=== PATIENT | female | born 1985 | race Caucasian/White ===

== ENCOUNTER 2020-01-27 07:00 | Emergency (ER) | payer OTHER ==
[2020-01-27 07:11] VITALS: BP 115/66; PULSE 61; TEMP 98.1; BMI 29.7
--- NOTE | 2020-01-27 08:00 | PDOC ---
History of Present Illness - General Chief Complaint: Vaginal Bleeding Stated Complaint: VAGINAL BLEED/7WKS Time Seen by Provider: 01/27/20 07:29 - History of Present Illness Initial Comments: 01/27/20 07:56 34yo at 7 weeks by LMP (12/08/19) presents with vaginal bleeding since this morning and cramping lower abdominal pain for one week. States she saw blood on the toilet paper when wiping after urination. No blood in the toilet. No continued bleeding.No trauma. No abnormal discharge. Remote history of chlamyd ia. Had one spontaneous at 8 weeks and one intentional at 6 weeks. Lives with , two kids, and brother in law. Feels safe at home. Reports polyuria, but no other or GI symptoms. Reports n/v in past pregnancies, but not this one. PMH/PSH/meds/allergies: none ETOH/tobacco/drugs: denies ROS GENERAL/CONSTITUTIONAL: No fever or chills. No weakness. HEAD, EYES, EARS, NOSE AND THROAT: No change in vision. No ear pain or discharge. No sore throat. CARDIOVASCULAR: No chest pain or shortness of breath RESPIRATORY: No cough, wheezing, or hemoptysis. GASTROINTESTINAL: No nausea, vomiting, diarrhea or constipation. GENITOURINARY: polyuria, no hematuria MUSCULOSKELETAL: No joint or muscle swelling or pain. No neck or back pain. SKIN: No rash NEUROLOGIC: No headache, vertigo, loss of consciousness, or change in strength/sensation. ENDOCRINE: No increased thirst. No abnormal weight change HEMATOLOGIC/LYMPHATIC: No anemia, easy bleeding, or history of blood clots. ALLERGIC/IMMUNOLOGIC: No hives or skin allergy. PE GENERAL: Awake, alert, and fully oriented, in no acute distress HEAD: No signs of trauma, normocephalic, atraumatic EYES: PERRLA, EOMI, sclera anicteric, conjunctiva clear ENT: Auricles normal inspection, hearing grossly normal, nares patent, oropharynx clear without exudates. Moist mucosa NECK: Normal ROM, supple, no lymphadenopathy, JVD, or masses LUNGS: No distress, speaks full sentences, clear to auscultation bilaterally HEART: Regular rate and rhythm, normal S1 and S2, no murmurs, rubs or gallops, peripheral pulses normal and equal bilaterally. ABDOMEN: Soft. suprapubic, LLQ, and periumbilical tenderness. No guarding, no rebound. No masses EXTREMITIES : Normal inspection, Normal range of motion, no edema. No clubbing or cyanosis. NEUROLOGICAL: Normal speech, normal gait, no focal sensorimotor deficits SKIN: Warm, Dry, normal turgor, no rashes or lesions noted Pelvic Exam: some blood in the vault, no pooling, no lesions or discharge, cervix not visualized, closed os on palpation. Vital Signs Temp Pulse Resp BP Pulse Ox 98.1 F 61 18 115/66 99 01/27/20 07:08 01/27/20 07:08 01/27/20 07:08 01/27/20 07:08 01/27/20 07:08 MDM: [age]yo at 7 weeks by LMP (12/08/19) presents with vaginal bleeding since t his morning and cramping lower abdominal pain for one week. Some blood on pelvic exam, with closed os. DDx includes , ectopic , UTI. -CBC, CMP, coags, T&S, UA/UC, beta hcg -transvaginal US 01/27/20 10:00 Labs: no emergent pathology. Beta hcg 269. TVUS: IUP vs. ectopic Patient's OBGYN Dr. Box at [facility], and was able to consult Dr. Streeter who is covering. He states the TVUS shows an IUP and there is likely no ectopic. He recommends repeat beta-hcg and TVUS in one week DC home with ectopic precautions and OBGYN f/u Past History - Medical History Allergies/Adverse Reactions: Allergies Allergy/AdvReac Type Severity Reaction Status Date / Time No Known Allergies Allergy Verified 01/27/20 07:11 COPD: No - Reproductive History Is Patient Now?: Yes Cervical CA: No Dysfunctional Uterine Bleeding: No Ectopic : No Endometrial CA: No Polycystic Ovaries: No Therapeutic (s) & number: No Tubal Ligation: No - Psycho-Social/Smoking History Smoking History: Never smoked - Substance Abuse Hx (Audit-C & DAST Scrn) How often the patient has a drink containing alcohol: Never Score: In Men: 4 or > Positive; In Women: 3 or > Positive: 0 Screen Result (Pos requires Nsg. Audit-10AR): Negative *Physical Exam - Vital Signs Last Vital Signs Temp Pulse Resp BP Pulse Ox 98.1 F 61 18 115/66 99 01/27/20 07:08 01/27/20 07:08 01/27/20 07:08 01/27/20 07:08 01/27/20 07:08 ED Treatment Course - LABORATORY CBC & Chemistry Diagram: 01/27/20 07:52 01/27/20 07:52 Discharge - Discharge Information Problems reviewed: Yes Clinical Impression/Diagnosis: Vaginal bleeding affecting early Condition: Fair Disposition: HOME - Admission No - Follow up/Referral - Patient Discharge Instructions Patient Printed Discharge Instructions: DI for Vaginal Bleeding During Additional Instructions: La vieron en la abhinav de emergencias por sangrado vaginal y dolor abdominal. Hicimos un examen fsico, laboratorios, ecografa y consultamos a un ginecoobstetra. Segn estos resultados, es probable que tenga un embarazo uterino. No est ta si el embarazo fue abortado o no. Tambin existe la posibilidad de que tenga un embarazo ectpico, shabana esto es menos probable. Debe ir a moreno ashvin con el obstetra el jueves para repetir las pruebas de laboratorio y la ecografa. Regrese a la abhinav de emergencias si experimenta sangrado vaginal intenso, dolor, aturdimiento, mareos, aturdimiento, prdida del conocimiento o cualquier otro problema. You were seen in the ER for vaginal bleeding and abdominal pain. We did a physical exam, labs, ultrasound, and consulted an OBGYN. Based off these r esults, you likely have a uterine . It is unclear whether or not the was aborted or not. There is also a possibility that you have an ectopic , but this is less likely. You need to go to your OBGYN appointment on for repeat lab tests and ultrasound. Please return to the ER if you experience severe vaginal bleeding, pain, lightheadedness, dizziness, lightheadedness, loss of consciousness, or any other problem. Print Language: MALTESE - Post Discharge Activity
[2020-01-27 08:27] LABS: BASO % 0.5 % (0-2.0); EOS % 2.3 % (0-4.5); HEMATOCRIT 36.1 % (32.4-45.2); HEMOGLOBIN 11.9 GM/dL (10.7-15.3); LYMPH % 22.9 % (8-40); MCH 27.6 pg (25.7-33.7); MCHC 33.1 g/dl (32.0-36.0); MEAN CELL VOLUME 83.6 fl (80-96); MONO % 4.6 % (3.8-10.2); NEUT % 69.7 % (42.8-82.8); PLATELET COUNT 275 K/MM3 (134-434); RBC 4.32 M/mm3 (3.60-5.2); RDW 17.1 % (11.6-15.6); WHITE BLOOD COUNT 9.8 K/mm3 (4.0-10.0)
[2020-01-27 08:29] LABS: EPI CELLS 7 /uL (0-25.1); HYALINE CASTS 0 /uL (0-3.1); URINE APPEARANCE CLEAR; URINE BACTERIA 196 /uL (0-1359); URINE BILIRUBIN NEGATIVE (NEGATIVE); URINE COLOR YELLOW; URINE GLUCOSE (UA) NEGATIVE (NEGATIVE); URINE KETONE NEGATIVE (NEGATIVE); URINE LEUK ESTERASE NEGATIVE (NEGATIVE); URINE NITRITE NEGATIVE (NEGATIVE); URINE PROTEIN NEGATIVE (NEGATIVE); URINE RBC 48 /uL (0-23.9); URINE UROBILINOGEN 0.2 mg/dL (0.2-1.0); URINE WBC 8 /uL (0-25.8)
[2020-01-27 08:32] LABS: INR 1.07 (0.83-1.09); PROTHROMBIN TIME (PATIENT) 12.6 SEC (9.7-13.0)
[2020-01-27 08:34] LABS: ACTIVATED PTT 32.3 SECONDS (25.2-36.5)
[2020-01-27 08:55] LABS: ALBUMIN 3.5 g/dl (3.4-5.0); BILIRUBIN,TOTAL 0.6 mg/dL (0.2-1); BLOOD UREA NITROGEN 10.2 mg/dL (7-18); CALCIUM 8.8 mg/dL (8.5-10.1); CREATININE 0.6 mg/dL (0.55-1.3); POTASSIUM 4.2 mmol/L (3.5-5.1); TOT PROT 7.4 g/dl (6.4-8.2)
--- NOTE | 2020-01-27 09:44 | PDOC ---
Attending Attestation - Resident Resident Name: Stalin Mack - ED Attending Attestation I have performed the following: I have examined & evaluated the patient, The case was reviewed & discussed with the resident, I agree w/resident's findings & plan, Exceptions are as noted - HPI HPI: 01/27/20 08:41 34yo at 7 weeks by LMP (12/08/19) presents with vaginal bleeding
--- NOTE | 2020-01-27 09:47 | PDOC ---
Documentation entered by Mary Zazueta SCRIBE, acting as scribe for Haider Espinal MD. Haider Espinal MD: This documentation has been prepared by the aliciaibeMarbin Ana, SCRIBE, under my direction and personally reviewed by me in its entirety. I confirm that the documentation accurately reflects all work, treatment, procedures, and medical decision making performed by me. Attending Attestation - Resident Resident Name: Stalin Mack - ED Attending Attestation I have performed the following: I have examined & evaluated the patient, The case was reviewed & discussed with the resident, I agree w/resident's findings & plan, Exceptions are as noted - HPI HPI: 01/27/20 09:19 Patient is a 34 year old 7 weeks female with a significant past medical history of chlamydia and spontaneous who presents to the ED with vagina bleeding x1 day and cramps x1 week. Patient stated she went to go wipe herself after urinating and saw blood on the toilet paper but there was no blood present in the toilet and no continued bleeding. Patient reports her cramping is in her lower abdomen. Patient endorses: polyuria Patient denies: any recent trauma, nausea, vomiting, abnormal discharge, smoking, alcohol intake, recreational drug use, or any other related symptoms. Allergies: NKDA - Physicial Exam PE: 01/27/20 09:24 Vitals: Triage vital signs reviewed General Appearance: No acute distress, well nourished, well developed Head: Atraumatic Cardiac: Regular rate and rhythm, no murmurs, no rubs, no gallops Lungs: Clear to auscultation bilateral, good air movement bilaterally Abdomen: Soft, nondistended, normal bowel sounds, nontender to palpation Extremities: Full range of motion to all extremities, no cyanosis, clubbing, or edema Skin: Warm and dry, no rashes or lesions, no rash, no petechiae Psych: Normal mood, normal affect - Medical Decision Making 01/27/20 10:53 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 Discharge - Discharge Information Problems reviewed: Yes Clinical Impression/Diagnosis: Vaginal bleeding affecting early Condition: Fair Disposition: HOME - Follow up/Referral - Patient Discharge Instructions Patient Printed Discharge Instructions: DI for Vaginal Bleeding During Additional Instructions: La vieron en la abhinav de emergencias por sangrado vaginal y dolor abdominal. Hicimos un examen fsico, laboratorios, ecografa y consultamos a un ginecoobstetra. Segn estos resultados, es probable que tenga un embarazo uterino. No est ta si el embarazo fue abortado o no. Tambin existe la pos ibilidad de que tenga un embarazo ectpico, shabana esto es menos probable. Debe ir a moreno ashvin con el obstetra el jueves para repetir las pruebas de laboratorio y la ecografa. Regrese a la abhinav de emergencias si experimenta sangrado vaginal intenso, dolor, aturdimiento, mareos, aturdimiento, prdida del conocimiento o cualquier otro problema. You were seen in the ER for vaginal bleeding and abdominal pain. We did a physical exam, labs, ultrasound, and consulted an OBGYN. Based off these results, you likely have a uterine . It is unclear whether or not the was aborted or not. There is also a possibility that you have an ectopic , but this is less likely. You need to go to your OBGYN appointment on for repeat lab tests and ultrasound. Please return to the ER if you experience severe vaginal bleeding, pain, lightheadedness, dizziness, lightheadedness, loss of consciousness, or any other problem. Print Language: ETHIOPIAN - Post Discharge Activity
--- NOTE | 2020-01-27 11:24 | CON.OBG ---
Consult Consult Specialty:: COMPONENTS ENGINEER Reason for Consultation:: Vaginal spotting, Abdominal pain - History of Present Illness Chief Complaint: Vaginal Bleeding, Abdominal cramps History of Present Illness: Dredge Mate #[id number] [place] Citizen 34 Y/O , LMP 12/08/2019, PSHX X2, 1 voluntary termination of (6W) & 1 spontaneous (8W), denies PMHx, presented to the ED today complaining of vaginal light spotting that started this morning, Patient also reports on & off lower light abdominal cramping X1 week. Pelvic US done showed : IUP 4+6 weeks size, no petal branden no FHR, as well as a cystic structure in Right Ovary ? corpus Luteial cyst VS Ectopic Ov evaluation VS: Stable BP 115/66, P 61, Temp 98.1, R 18, PO2 99% on RA PE: AAOX3 in NAD HEENT: NC/AT Chest: CTA, BL Abdomen: Soft, non disbanded, non tender, no Guarding no rebound, no palpable mass. EXT: -C/C/E, -ve Gillian" BL VE: Scant blood in vagina, no active bleeding Cervical os closed NO CMT, No palpable mass WNL external Genitalia. LABS QBHCG 269 WBC 9.8>11.9/36.1<275 Bun 10.2, Lens Silverer 0.6 A/P 34 Y/O , LMP 12/08/2019 IUP 4+6 weeks size, no petal branden no FHR, as well as a cystic structure in Right Ovary ? corpus Luteial cyst VS Ectopic Liklely early Vs Bliated Ovum All options D/W patient and elected to have expectant management for now. F/U & Repeat QBHCG and pelvic US in one week at [facility] [place] Strict and Ectopic precautions given. all questions answered, Patient expressed and verbalized full understanding. - History Source History Provided By: Patient - Past Medical History ...LMP: 12/08/19 ...LMP Comment: 12/08/2019 ...: Yes ...: 5 ...Para: 2 - Past Surgical History Past Surgical History: Yes: - Smoking History Smoking history: Never smoked Home Medications - Allergies Allergies/Adverse Reactions: Allergies Allergy/AdvReac Type Severity Reaction Status Date / Time No Known Allergies Allergy Verified 01/27/20 07:11 Review of Systems - Review of Systems Genitourinary: reports: Vaginal Bleeding Physical Exam-COMPONENTS ENGINEER Vital Signs: Vital Signs Temperature 98.1 F 01/27/20 07:08 Pulse Rate 61 01/27/20 07:08 Respiratory Rate 18 01/27/20 07:08 Blood Pressure 115/66 01/27/20 07:08 O2 Sat by Pulse Oximetry (%) 99 01/27/20 07:08 Constitutional: Yes: Well Nourished Eyes: Yes: WNL HENT: Yes: WNL Neck: Yes: WNL Respiratory: Yes: WNL Gastrointestinal: Yes: WNL Renal/: Yes: , Vaginal Bleeding External Genitalia: Yes: Normal Vaginal Exam: Yes: Bleeding Cervix: Yes: Normal Uterus: Yes: Normal Labs: CBC, BMP 01/27/20 07:52 01/27/20 07:52 Assessment/Plan A/P 34 Y/O , LMP 12/08/2019 IUP 4+6 weeks size, no petal branden no FHR, as well as a cystic structure in Right Ovary ? corpus Luteial cyst VS Ectopic Liklely early Vs Bliated Ovum All options D/W patient and elected to have expectant management for now. F/U & Repeat QBHCG and pelvic US in one week at [facility] [place] Strict and Ectopic precautions given. all questions answered, Patient expressed and verbalized full understanding.
== END 2020-01-27 11:18 | disposition home or self-care (01) ==
LOC: JER 07:00
DX: O26.851 Spotting complicating pregnancy, first trimester (principal)
CPT/HCPCS: 36415; 76817-TC; 80053; 81003; 84702; 85025; 85610; 85730; 86850; 86900; 86901; 87086; 99284-25

== ENCOUNTER 2020-10-24 09:30 | Inpatient (IN) | payer OTHER ==
[2020-10-24] MEDS ORDERED: ELECTROLYTE-148 SOLN 1,000 ML IV SCH ×2 (09:45→10:15)
[2020-10-24] MEDS ORDERED: CITRIC ACID/SODIUM CITRATE 30 ML UNIT-DOSE CUP PO ONE (09:45)
[2020-10-24 10:16] LABS: BASO % 0.7 % (0-2.0); EOS % 1.1 % (0-4.5); HEMATOCRIT 28.6 % (32.4-45.2); HEMOGLOBIN 9.2 GM/dL (10.7-15.3); LYMPH % 21.3 % (8-40); MCH 23.4 pg (25.7-33.7); MCHC 32.1 g/dl (32.0-36.0); MEAN CELL VOLUME 72.9 fl (80-96); MEAN PLT VOLUME 8.1 fl (7.5-11.1); MONO % 4.7 % (3.8-10.2); NEUT % 72.2 % (42.8-82.8); PLATELET COUNT 264 K/MM3 (134-434); RBC 3.91 M/mm3 (3.60-5.2); RDW 17.2 % (11.6-15.6); WHITE BLOOD COUNT 9.2 K/mm3 (4.0-10.0)
[2020-10-24 10:32] LABS: INR 0.96 (0.83-1.09); PROTHROMBIN TIME (PATIENT) 11.8 SEC (9.7-13.0)
[2020-10-24 10:34] VITALS: BMI 35.9
[2020-10-24 10:43] LABS: CALCIUM 8.2 mg/dL (8.5-10.1)
[2020-10-24 10:44] LABS: BLOOD UREA NITROGEN 7.6 mg/dL (7-18)
[2020-10-24 10:48] LABS: CREATININE 0.5 mg/dL (0.55-1.3)
[2020-10-24] MEDS ORDERED: morphine SULFATE/PF 0.5 MG/ML (2cc Syringe - QUVA) ONE (10:54)
[2020-10-24] MEDS ORDERED: LIGASURE IMPACT TP ONE (12:13)
[2020-10-24] MEDS ORDERED: DEXAMETHASONE SOD PHOSPHATE 4 MG/1 ML VIAL ONE (12:27)
[2020-10-24] MEDS ORDERED: GLYCOPYRROLATE 0.2 MG/1 ML VIAL ONE (12:27)
[2020-10-24] MEDS ORDERED: PHENYLEPHRINE HCL 10 MG/1 ML SINGLE DOSE VIAL ONE (12:27)
[2020-10-24] MEDS ORDERED: ONDANSETRON 4 MG/2 ML VIAL ONE (12:27)
[2020-10-24] MEDS ORDERED: KETOROLAC TROMETHAMINE 30 MG/1 ML VIAL ONE (12:27)
[2020-10-24] MEDS ORDERED: ceFAZolin SODIUM 1 GM VIAL ONE (12:27)
[2020-10-24] MEDS ORDERED: OXYTOCIN 10 UNITS/ML VIAL ONE (12:27)
[2020-10-24] MEDS ORDERED: SENNOSIDES/DOCUSATE COMBO (SENNA PLUS) TABLET (UD) PO PRN (13:11)
[2020-10-24] MEDS ORDERED: oxyCODONE HCL 5 MG TABLET PO PRN (13:11)
[2020-10-24] MEDS ORDERED: IBUPROFEN 800 MG/8 ML IJ IVPB PRN (13:11)
[2020-10-24] MEDS ORDERED: ONDANSETRON 4 MG/2 ML VIAL IVPB PRN (13:11)
[2020-10-24] MEDS ORDERED: OXYTOCIN 20 UNITS in 0.9% NS 20 UNIT/1,000 ML INFUS.BAG IV SCH (13:15)
[2020-10-24 13:17] LABS: CORD HCO3 21.2 mmHg (20-29); CORD PCO2 39.4 mmHg (30-78); CORD pH 7.349 (7.14-7.44)
[2020-10-24 13:20] LABS: CORD BASE EXCESS -2.6 mmol/L (0-2); CORD HCO3 22.8 mmHg (20-29); CORD PCO2 41.6 mmHg (30-78); CORD pH 7.356 (7.14-7.44)
[2020-10-24] MEDS ORDERED: morphine SULFATE/PF 0.5 MG/ML (2cc Syringe - QUVA) EP ONE (13:22)
[2020-10-24] MEDS: ACETAMINOPHEN 1000 MG/100 ML VIAL (NON FORMULARY) IVPB PRN ×2 (16:10→22:28)
[2020-10-24] MEDS: CEFAZOLIN 1 GM/D5W 1 GM/50 ML BAG IVPB SCH (19:56)
[2020-10-25] MEDS: CEFAZOLIN 1 GM/D5W 1 GM/50 ML BAG IVPB SCH (04:08)
[2020-10-25 07:38] LABS: BASO % 0.3 % (0-2.0); EOS % 0.4 % (0-4.5); HEMATOCRIT 24.1 % (32.4-45.2); HEMOGLOBIN 7.6 GM/dL (10.7-15.3); LYMPH % 20.6 % (8-40); MCH 22.8 pg (25.7-33.7); MCHC 31.3 g/dl (32.0-36.0); MEAN CELL VOLUME 72.9 fl (80-96); MONO % 6.2 % (3.8-10.2); NEUT % 72.5 % (42.8-82.8); PLATELET COUNT 229 K/MM3 (134-434); RBC 3.31 M/mm3 (3.60-5.2); RDW 17.9 % (11.6-15.6); WHITE BLOOD COUNT 12.2 K/mm3 (4.0-10.0)
[2020-10-25] MEDS: ACETAMINOPHEN 1000 MG/100 ML VIAL (NON FORMULARY) IVPB PRN (08:45)
[2020-10-25] MEDS ORDERED: BISACODYL 10 MG SUPP.RECT RC PRN (13:11)
[2020-10-25] MEDS: IBUPROFEN 600 MG TABLET (FP) PO PRN ×2 (14:55→21:14)
[2020-10-25] MEDS: ACETAMINOPHEN 325 MG TABLET (FP) PO PRN ×2 (14:55→21:13)
[2020-10-25] MEDS: SIMETHICONE 80 MG TAB.CHEW (FP) PO PRN ×2 (14:55→21:15)
[2020-10-25 16:33] LABS: BASO % 0.4 % (0-2.0); EOS % 0.9 % (0-4.5); HEMATOCRIT 23.1 % (32.4-45.2); HEMOGLOBIN 7.3 GM/dL (10.7-15.3); LYMPH % 19.9 % (8-40); MCHC 31.6 g/dl (32.0-36.0); MEAN CELL VOLUME 72.7 fl (80-96); MEAN PLT VOLUME 8.1 fl (7.5-11.1); MONO % 6.7 % (3.8-10.2); NEUT % 72.1 % (42.8-82.8); PLATELET COUNT 230 K/MM3 (134-434); RBC 3.18 M/mm3 (3.60-5.2); RDW 17.5 % (11.6-15.6); WHITE BLOOD COUNT 11.5 K/mm3 (4.0-10.0)
[2020-10-26 08:15] LABS: HEMATOCRIT 24.3 % (32.4-45.2); HEMOGLOBIN 7.7 GM/dL (10.7-15.3); MCH 23.2 pg (25.7-33.7); MCHC 31.9 g/dl (32.0-36.0); MEAN CELL VOLUME 72.8 fl (80-96); MEAN PLT VOLUME 7.9 fl (7.5-11.1); PLATELET COUNT 242 K/MM3 (134-434); RBC 3.33 M/mm3 (3.60-5.2); RDW 17.6 % (11.6-15.6); WHITE BLOOD COUNT 9.4 K/mm3 (4.0-10.0)
[2020-10-26 12:05] VITALS: BP 114/71; PULSE 63; TEMP 98.3
[2020-10-27 07:53] LABS: POC NITRAZINE POS
== END 2020-10-26 12:30 | disposition home or self-care (01) | DRG 540 ==
LOC: JLDR 09:30 → J3W 14:30
PROVIDERS: ADMIT Family Medicine; ATTEND Family Medicine
PROC: 10D00Z1 Extraction of Products of Conception, Low, Open Approach (ICD-10-PCS; principal; 2020-10-24)
PROC: 0UL70ZZ Occlusion of Bilateral Fallopian Tubes, Open Approach (ICD-10-PCS; 2020-10-24)
DX: O34.211 Maternal care for low transverse scar from previous cesarean delivery (principal); Z30.2 Encounter for sterilization; Z3A.38 38 weeks gestation of pregnancy; Z37.0 Single live birth
CPT/HCPCS: 36415; 36600; 59025; 80048; 82803; 82962; 83986-QW; 85025; 85027; 85610; 85730; 86780; 86850; 86900; 86901; 88302-TC; 88307-TC; C9803; G0463-25; J0131; U0003; U0005